=== PATIENT | male | born 1975 | race Caucasian/White ===

== ENCOUNTER 2023-02-21 17:40 | Emergency (ER) | payer OTHER ==
[2023-02-21] MEDS ORDERED: Phenylephrine 1% 10 MG/ML SDV IM ONE (18:27)
[2023-02-21] MEDS ORDERED: Sodium Chloride 0.9% 100 ML IV ONE (18:55)
[2023-02-21] MEDS ORDERED: Ketorolac 60 MG/2 ML SDV ONE (19:26)
[2023-02-21] MEDS ORDERED: Ketorolac 60 MG/2 ML SDV IM ONE (19:31)
[2023-02-21] MEDS ORDERED: Lidocaine 1% with EPINEPHrine 1:100,000 10 ML MDV INJECT ONE (19:52)
[2023-02-21] MEDS ORDERED: Lidocaine 1% with EPINEPHrine 1:100,000 20 ML MDV ONE (19:55)
[2023-02-21] MEDS ORDERED: Lidocaine 1% with EPINEPHrine 1:100,000 20 ML MDV INJECT ONE (19:57)
[2023-02-22 01:29] VITALS: BP 150/100; PULSE 82
== END 2023-02-21 22:00 | disposition home or self-care (01) ==
LOC: JD.ED 17:40
DX: N48.30 Priapism, unspecified (principal); I10 Essential (primary) hypertension; Z79.899 Other long term (current) drug therapy; Z86.16 Personal history of COVID-19
CPT/HCPCS: 96372; 99283; J1885; J2370; J3490

== ENCOUNTER 2023-04-29 02:04 | Emergency (ER) | payer OTHER ==
[2023-04-29] MEDS ORDERED: Phenylephrine 1% 10 MG/ML SDV IM STA (03:48)
[2023-04-29] MEDS ORDERED: Lidocaine 1% 10 ML MDV INJECT ONE (03:49)
[2023-04-29 04:51] VITALS: PULSE 72
[2023-04-29 05:38] VITALS: BP 150/93
== END 2023-04-29 05:44 | disposition home or self-care (01) ==
LOC: JD.ED 02:04
DX: N48.33 Priapism, drug-induced (principal); I10 Essential (primary) hypertension; J44.9 Chronic obstructive pulmonary disease, unspecified; Z86.16 Personal history of COVID-19; Z87.891 Personal history of nicotine dependence
CPT/HCPCS: 54220; 96372; 99283; J2370; J3490

== ENCOUNTER 2023-07-31 22:34 | Emergency (ER) | payer OTHER ==
[2023-07-31 22:51] VITALS: BP 150/102; PULSE 98
== END 2023-07-31 23:32 | disposition home or self-care (01) ==
LOC: JD.ED 22:34
DX: S16.1XXA Strain of muscle, fascia and tendon at neck level, initial encounter (principal); S50.02XA Contusion of left elbow, initial encounter; I10 Essential (primary) hypertension; Z86.16 Personal history of COVID-19; Z79.899 Other long term (current) drug therapy; V89.2XXA Person injured in unspecified motor-vehicle accident, traffic, initial encounter
CPT/HCPCS: 99283